=== PATIENT | male | born 1970 | race Caucasian/White ===

== ENCOUNTER 2021-03-26 07:40 | Observation (INO) ==
[2021-03-26] MEDS ORDERED: Aspirin 81 MG TAB.CHEW PO ONE (07:48)
[2021-03-26 08:24] LABS: Basophils % 0.4 %; Eosinophils # 0.1 K/mcL (0.0-0.6); Eosinophils % 1.5 %; Hematocrit 50.3 % (37.5-50.1); Hemoglobin 16.9 g/dL (12.9-16.9); Immature Granulocytes % 0.3 % (0-4); Lymphocytes # 1.5 K/mcL (0.6-4.6); Lymphocytes % 21.8 %; Mean Corpuscular HGB Conc 33.6 g/dL (31.6-35.5); Mean Corpuscular Hemoglobin 33.3 pg (28.0-33.3); Mean Platelet Volume 9.6 fL (9.4-12.4); Monocytes # 0.5 K/mcL (0.0-1.3); Monocytes % 7.6 %; Neutrophils # 4.7 K/mcL (1.6-8.9); Platelet Count 215 K/mcL (140-400); Red Blood Count 5.08 M/mcL (4.19-5.50); Segmented Neutrophils % 68.4 %; White Blood Count 6.8 K/mcL (4.3-11.1)
[2021-03-26 08:34] LABS: Activated Partial Thrombo Time 30.8 Seconds (26.0-36.0)
[2021-03-26 08:46] LABS: BUN/Creatinine Ratio 15 (6-26); Blood Urea Nitrogen 17 mg/dL (6-20); Calcium 9.3 mg/dL (8.6-10.3); Carbon Dioxide 27 mEq/L (23-29); Chloride 105 mEq/L (98-107); Glucose 103 mg/dL (70-105); Osmolality,Calculated 288 (280-300); Sodium 138 mEq/L (136-145); eGFR For African Americans > 60 (> 60); eGFR For Non-African Americans > 60 (> 60)
[2021-03-26] MEDS: Nitroglycerin 0.4 MG TAB.SUBL SL SCH (09:06)
[2021-03-26 09:09] LABS: Troponin I < 0.03 ng/mL (< 0.04)
[2021-03-26 10:32] LABS: Adenovirus Not Detected (Not Detect); Bordetella Pertussis Not Detected (Not Detect); Chlamydophila pneumoniae Not Detected (Not Detect); Coronavirus 229E Not Detected (Not Detect); Coronavirus HKU1 Not Detected (Not Detect); Coronavirus NL63 Not Detected (Not Detect); Coronavirus OC43 Not Detected (Not Detect); Human Metapneumovirus Not Detected (Not Detect); Human Rhinovirus/Enterovirus Not Detected (Not Detect); Influenza A Subtype 2009 H1 Not Detected (Not Detect); Influenza B Not Detected (Not Detect); Mycoplasma pneumoniae Not Detected (Not Detect); Parainfluenza Virus 1 Not Detected (Not Detect); Parainfluenza Virus 2 Not Detected (Not Detect); Parainfluenza Virus 3 Not Detected (Not Detect); Parainfluenza Virus 4 Not Detected (Not Detect); Respiratory Syncytial Virus Not Detected (Not Detect); SARS-CoV-2 Not Detected (Not Detect)
[2021-03-26] MEDS ORDERED: Ondansetron 4 MG/2 ML VIAL IVP PRN (10:37)
[2021-03-26] MEDS ORDERED: Melatonin 3 MG TABLET PO PRN (10:37)
[2021-03-26] MEDS ORDERED: *HR* HYDROcodone/Acet 5/325 mg TABLET PO PRN (10:37)
[2021-03-26] MEDS ORDERED: Acetaminophen 325 MG TABLET PO PRN (10:37)
[2021-03-26] MEDS ORDERED: *HR* OxyCODONE Immed Rel 5 MG TABLET PO PRN (10:37)
[2021-03-26] MEDS ORDERED: Naloxone 0.4 MG/ML INJ IVP PRN (10:37)
[2021-03-26 10:56] LABS: Estimated Average Glucose 111 mg/dl; Hemoglobin A1C 5.5 %
[2021-03-26 11:02] LABS: Chol/HDL Ratio 2.9 (0-4.9); Cholesterol 147 mg/dL (< 200); HDL Cholesterol 50 mg/dL (40-59); LDL Cholesterol,Calculated 47 mg/dL (< 100); Triglycerides 250 mg/dL (< 150)
[2021-03-26 11:16] LABS: Thyroid Stimulating Hormone 2.544 mcIU/mL (0.340-5.600)
[2021-03-26] MEDS ORDERED: Perflutren Lipid Microsphere 1.3 ML in 0.9 % Sodium Chloride 8.7 ML IVP PRN (11:34)
[2021-03-26 12:25] LABS: C-Reactive Protein < 5 mg/L (Less than 10)
[2021-03-26 12:52] LABS: Troponin I < 0.03 ng/mL (< 0.04)
[2021-03-26] MEDS: carvediloL 6.25 MG TABLET PO SCH (16:35)
[2021-03-27 02:17] LABS: Hematocrit 46.4 % (37.5-50.1); Hemoglobin 16.2 g/dL (12.9-16.9); Mean Corpuscular HGB Conc 34.9 g/dL (31.6-35.5); Mean Corpuscular Hemoglobin 34.2 pg (28.0-33.3); Mean Corpuscular Volume 97.9 fL (83.0-100.0); Mean Platelet Volume 9.8 fL (9.4-12.4); Platelet Count 217 K/mcL (140-400); Red Blood Count 4.74 M/mcL (4.19-5.50); Red Cell Distribution Width 11.9 % (11.5-14.5); White Blood Count 9.1 K/mcL (4.3-11.1)
[2021-03-27 02:47] LABS: BUN/Creatinine Ratio 17 (6-26); Blood Urea Nitrogen 18 mg/dL (6-20); Calcium 8.8 mg/dL (8.6-10.3); Carbon Dioxide 23 mEq/L (23-29); Chloride 104 mEq/L (98-107); Glucose 96 mg/dL (70-105); Magnesium 1.9 mg/dL (1.6-2.6); Osmolality,Calculated 284 (280-300); Phosphorous 3.5 mg/dL (2.7-4.5); Potassium 3.9 mEq/L (3.5-5.1); Sodium 136 mEq/L (136-145); eGFR For African Americans > 60 (> 60); eGFR For Non-African Americans > 60 (> 60)
[2021-03-27 03:01] LABS: Folate 18.5 ng/mL (3.0-16.0)
[2021-03-27] MEDS ORDERED: *HR* Enoxaparin 40 MG/0.4 ML SYRINGE SQ SCH (06:00)
[2021-03-27] MEDS ORDERED: Regadenoson 0.4 MG/5 ML SYRINGE IVP ONE (06:13)
[2021-03-27] MEDS ORDERED: Multivit/Ca/Min/Fe/FA 1 TAB TABLET PO SCH (09:00)
[2021-03-27] MEDS ORDERED: Thiamine (B-1) 100 MG TABLET PO SCH (09:00)
[2021-03-27] MEDS ORDERED: Aspirin 81 MG TAB.CHEW PO SCH (09:00)
[2021-03-27] MEDS ORDERED: Folic Acid 1 MG TABLET PO SCH (09:00)
[2021-03-27] MEDS: carvediloL 6.25 MG TABLET PO SCH (09:16)
[2021-03-27] MEDS: Nitroglycerin 0.4 MG TAB.SUBL SL SCH (09:53)
[2021-03-27 11:15] VITALS: BP 123/81; PULSE 70; TEMP 98.4; O2SAT 94
[2021-03-27] MEDS ORDERED: Cyanocobalamin (B-12) 1,000 MCG TABLET PO SCH (18:00)
[2021-03-27] MEDS ORDERED: Cholecalciferol (D-3) 1,000 UNIT (25MCG) TABLET PO SCH (18:00)
== END 2021-03-27 15:38 | disposition home or self-care (01) ==
LOC: SUATTDRO → 2ANU 07:40 → EMEROOARM 07:40 → SUATTDRO 13:35 → 2ANU 14:10
PROVIDERS: ADMIT Internal Medicine; ATTEND Family Medicine